=== PATIENT | female | born 1980 | race Caucasian/White ===

== ENCOUNTER 2018-11-22 19:37 | Emergency (ER) | payer BC ==
[~2018-11-22] VITALS: Ht 167.6 cm; Wt 113.4 kg
[~2018-11-22 19:37] MED LIST: CARI350T PO; HYDR-4385 PO; IBUP-1957 PO; IPRA4AER IH
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
--- NOTE | 2018-11-22 20:00 | NUR ---
ERMD at bedside for MSE
[2018-11-22] MEDS ORDERED: CYCLOBENZAPRINE HCL 10 MG TABLET PO ONE (20:15)
[2018-11-22] MEDS ORDERED: IBUPROFEN 600 MG TABLET PO ONE (20:15)
[2018-11-22] MEDS ORDERED: CYCLOBENZAPRINE HCL 10 MG TABLET ONE (20:18)
[2018-11-22] MEDS ORDERED: IBUPROFEN 600 MG TABLET ONE (20:18)
[2018-11-22] MEDS ORDERED: ACETAMINOPHEN ES 500 MG TABLET ONE (20:21)
[2018-11-22 20:28] VITALS: BP 135/83
[2018-11-22] MEDS ORDERED: ACETAMINOPHEN 325 MG TABLET PO ONE (20:30)
--- NOTE | 2018-11-22 20:31 | NUR ---
Patient discharged to home in stable conditon. Written and verbal after care instructions given. Patient verbalizes understanding of instructions. Patient ambulated with stable gait.
== END 2018-11-22 20:31 | disposition home or self-care (01) ==
LOC: ER 19:39
DX: S16.1XXA Strain of muscle, fascia and tendon at neck level, initial encounter (principal); S39.012A Strain of muscle, fascia and tendon of lower back, initial encounter; S09.90XA Unspecified injury of head, initial encounter; S69.92XA Unspecified injury of left wrist, hand and finger(s), initial encounter; R11.2 Nausea with vomiting, unspecified; J45.909 Unspecified asthma, uncomplicated; Z88.2 Allergy status to sulfonamides; Z91.040 Latex allergy status; Z88.8 Allergy status to other drugs, medicaments and biological substances; Z79.1 Long term (current) use of non-steroidal anti-inflammatories (NSAID); Z79.899 Other long term (current) drug therapy; V43.52XA Car driver injured in collision with other type car in traffic accident, initial encounter; Y93.89 Activity, other specified; Y92.410 Unspecified street and highway as the place of occurrence of the external cause; Y99.8 Other external cause status
CPT/HCPCS: A4663; A9150